=== PATIENT | female | born 2000 | race Caucasian/White ===

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

== ENCOUNTER → 2023-08-06 | Outpatient (CLI) | payer OTHER | LOC: COL.RAD 13:41 | DX: R59.0 Localized enlarged lymph nodes (principal) ==